=== PATIENT | male | born 1955 | race Caucasian/White ===

== ENCOUNTER 2018-10-04 05:28 | Day surgery (SDC) | payer OTHER | END 2018-10-04 09:10 | disposition home or self-care (01) | LOC: AMB-ENDOS 05:28 | DX: D12.2 Benign neoplasm of ascending colon (principal); K64.8 Other hemorrhoids ==

== ENCOUNTER 2018-11-08 05:10 | Day surgery (SDC) | payer OTHER ==
[~2018-11-08 05:10] MED LIST: CRESTOR20 MG PO; LOSARTAN-HCTZ1 EAC1 PO; OMEGA 3 1,0001 EACH PO; PROSCAR5 MG PO
== END 2018-11-08 10:25 | disposition home or self-care (01) ==
LOC: CIR.AMB 05:10
DX: G56.02 Carpal tunnel syndrome, left upper limb (principal)